=== PATIENT | female | born 1945 | race Two or more races ===

== ENCOUNTER 2017-09-28 13:24 | Outpatient (CLI) | payer OTHER ==
[~2017-09-28 13:24] MED LIST: PROSOM2 MG PO; WELLBUTRIN XL300 MG PO; XANAX2 MG PO; ZYPREXA10 MG PO
== END 2017-09-28 13:26 | disposition home or self-care (01) ==
LOC: MAMO-SONO 13:24
DX: Z12.31 Encounter for screening mammogram for malignant neoplasm of breast (principal); Z87.898 Personal history of other specified conditions; N64.4 Mastodynia

== ENCOUNTER 2018-02-21 15:00 | Outpatient (CLI) | payer OTHER | END 2018-02-21 15:33 | disposition home or self-care (01) | LOC: NUCLEAR 15:00 | DX: R42 Dizziness and giddiness (principal); I67.89 Other cerebrovascular disease ==

== ENCOUNTER → 2018-02-21 | Outpatient (CLI) | payer OTHER | END | disposition home or self-care (01) | LOC: TOM 14:24 | DX: R42 Dizziness and giddiness (principal) ==

== ENCOUNTER 2018-04-18 11:58 | Outpatient (CLI) | payer OTHER | END 2018-04-18 12:05 | disposition home or self-care (01) | LOC: LAB 11:58 | DX: R42 Dizziness and giddiness (principal); R10.84 Generalized abdominal pain; Z51.81 Encounter for therapeutic drug level monitoring ==

== ENCOUNTER 2018-04-20 08:45 | Outpatient (CLI) | payer OTHER | END 2018-04-20 09:11 | disposition home or self-care (01) | LOC: TOM 08:45 | DX: R42 Dizziness and giddiness (principal); R10.84 Generalized abdominal pain; R11.2 Nausea with vomiting, unspecified | CPT/HCPCS: 74178; Q9965 ==

== ENCOUNTER 2018-05-19 12:34 | Emergency (ER) | payer OTHER ==
[~2018-05-19] VITALS: Ht 170.2 cm; Wt 84.4 kg
== END 2018-05-19 16:44 | disposition home or self-care (01) ==
LOC: ER 12:34
DX: R11.2 Nausea with vomiting, unspecified (principal); F31.81 Bipolar II disorder

== ENCOUNTER 2018-12-31 11:48 | Outpatient (CLI) | payer OTHER | END 2018-12-31 11:52 | disposition home or self-care (01) | LOC: MRI 11:48 | DX: M79.7 Fibromyalgia (principal); R42 Dizziness and giddiness; M54.5 Low back pain; E46 Unspecified protein-calorie malnutrition; E55.9 Vitamin D deficiency, unspecified; G89.4 Chronic pain syndrome; E78.2 Mixed hyperlipidemia | CPT/HCPCS: 70553; A9575; 70552 ==

== ENCOUNTER 2019-02-04 13:46 | Outpatient (CLI) | payer OTHER | END 2019-02-04 13:50 | disposition home or self-care (01) | LOC: NUCLEAR 13:46 | DX: M85.89 Other specified disorders of bone density and structure, multiple sites (principal); M81.0 Age-related osteoporosis without current pathological fracture; Z13.820 Encounter for screening for osteoporosis ==

== ENCOUNTER → 2020-07-14 | Outpatient (CLI) | payer OTHER | END | disposition home or self-care (01) | LOC: MAMO-SONO 05-08 13:15 | DX: N60.01 Solitary cyst of right breast (principal); N60.02 Solitary cyst of left breast; Z12.31 Encounter for screening mammogram for malignant neoplasm of breast; N64.4 Mastodynia; M54.5 Low back pain; R42 Dizziness and giddiness; E78.2 Mixed hyperlipidemia; G89.4 Chronic pain syndrome ==

== ENCOUNTER 2020-08-04 13:30 | Outpatient (CLI) | payer OTHER | END 2020-08-04 13:33 | disposition home or self-care (01) | LOC: NUCLEAR 13:30 | PROVIDERS: ATTEND Internal Medicine | DX: M81.0 Age-related osteoporosis without current pathological fracture (principal); M54.5 Low back pain; M79.7 Fibromyalgia; E78.2 Mixed hyperlipidemia ==

== ENCOUNTER 2020-09-15 12:46 | Outpatient (CLI) | payer OTHER | END 2020-09-15 12:58 | disposition home or self-care (01) | LOC: MRI 12:46 | DX: M23.306 Other meniscus derangements, unspecified meniscus, right knee (principal) | CPT/HCPCS: 73721 ==

== ENCOUNTER 2020-11-09 11:55 | Outpatient (CLI) | payer OTHER | END 2020-11-09 12:06 | disposition home or self-care (01) | LOC: RAD 11:55 | PROVIDERS: ATTEND Specialist | DX: M19.079 Primary osteoarthritis, unspecified ankle and foot (principal); M16.0 Bilateral primary osteoarthritis of hip; M17.0 Bilateral primary osteoarthritis of knee ==

== ENCOUNTER 2022-07-25 14:13 | Outpatient (CLI) | payer OTHER | END 2022-07-25 14:20 | disposition home or self-care (01) | LOC: MAMO-SONO 14:13 | PROVIDERS: ATTEND Internal Medicine | DX: Z12.31 Encounter for screening mammogram for malignant neoplasm of breast (principal); N64.4 Mastodynia ==

== ENCOUNTER 2023-03-22 11:06 | Outpatient (CLI) | payer OTHER | END 2023-03-22 13:52 | disposition home or self-care (01) | LOC: MRI 11:06 | PROVIDERS: ATTEND Internal Medicine | DX: M54.41 Lumbago with sciatica, right side (principal) | CPT/HCPCS: 72149; Q9965 ==

== ENCOUNTER 2024-12-20 12:59 | Emergency (ER) | payer OTHER ==
[~2024-12-20] VITALS: Ht 165.1 cm; Wt 64.9 kg
[2024-12-20] MEDS ORDERED: KETOROLAC TROMETHAMINE 60 MG VIAL IM ONE (13:30)
[2024-12-20 14:28] LABS: BASO % 0.4 % (0.1-1.2); EOS # 0.09 (0.04-0.54); EOS % 1.2 % (0.7-7.0); LYMPH # 1.16 (1.18-3.74); LYMPH % 15.1 % (19.3-53.1); MEAN PLATELET VOLUME 9.60 fl (9.4-12.4); MONO # 0.74 (0.24-0.82); MONO % 9.6 % (4.7-12.5); NEUT # 5.61 (1.56-6.13); NEUT % 72.8 % (34.0-71.1); RED CELL DISTRIBUTION WIDTH 14.6 % (11.6-14.4)
[2024-12-20] MEDS ORDERED: TRIAMCINOLONE ACETONIDE 40 MG/ML VIAL IM ONE (20:15)
== END 2024-12-20 20:26 | disposition home or self-care (01) ==
LOC: ER 12:59
PROVIDERS: Emergency Medicine
DX: M54.50 Low back pain, unspecified (principal)
CPT/HCPCS: 36415; 72131; 96372; 99284; J1885; J3301